=== PATIENT | female | born 1990 | race African-American/Black ===

== ENCOUNTER 2018-02-04 10:17 | Emergency (ER) | payer OTHER ==
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
--- NOTE | 2018-02-04 10:33 | EDPHYS ---
Physician Documentation [facility] Name: Christie Garcia Age: 27 yrs Sex: Female : 1990 Arrival Date: 02/04/2018 Time: 10:22 Bed 13 Private MD: Out, [facility] ED Physician Piyush Schmidt HPI: 02/04 10:35 This 27 yrs old Black Female presents to ER via Ambulatory with complaints of Headache snw < 24hrs Old. 10:35 The patient complains of pain to the right parietal area. The patient describes the snw headache as a pressure, throbbing. Onset: The symptoms/episode began/occurred suddenly, 4 day(s) ago. Associated signs and symptoms: Pertinent positives: intermittent blurry vision, headache, dizziness. The patient has not experienced similar symptoms in the past. The patient has not recently seen a physician. 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 - Social history:: Smoking status: Patient/guardian denies using tobacco, Patient uses alcohol, weekly. Patient/guardian denies using street drugs. - Ebola Screening: : Patient negative for fever greater than or equal to 101.5 degrees Fahrenheit, and additional compatible Ebola Virus Disease symptoms Patient denies exposure to infectious person Patient denies travel to an Ebola-affected area in the 21 days before illness onset No symptoms or risks identified at this time. ROS: 10:35 Constitutional: Negative for fever, chills, and weight loss, Eyes: Negative for injury, snw pain, redness, and discharge, ENT: Negative for injury, pain, and discharge, Neck: Negative for injury, pain, and swelling, Cardiovascular: Negative for chest pain, palpitations, and edema, Respiratory: Negative for shortness of breath, cough, wheezing, and pleuritic chest pain, Abdomen/GI: Negative for abdominal pain, nausea, vomiting, diarrhea, and constipation, Back: Negative for injury and pain, : Negative for injury, bleeding, discharge, and swelling, MS/Extremity: Negative for injury and deformity, Skin: Negative for injury, rash, and discoloration. 10:35 Neuro: Positive for dizziness, intermittent s/p CHI . Exam: 10:34 Constitutional: This is a well developed, well nourished patient who is awake, alert, snw and in no acute distress. Head/Face: Normocephalic, atraumatic. Eyes: Pupils equal round and reactive to light, extra-ocular motions intact. Lids and lashes normal. Conjunctiva and sclera are non-icteric and not injected. Cornea within normal limits. Periorbital areas with no swelling, redness, or edema. ENT: Nares patent. No nasal discharge, no septal abnormalities noted. Tympanic membranes are normal and external auditory canals are clear. Oropharynx with no redness, swelling, or masses, exudates, or evidence of obstruction, uvula midline. Mucous membranes moist. Neck: Trachea midline, no thyromegaly or masses palpated, and no cervical lymphadenopathy. Supple, full range of motion without nuchal rigidity, or vertebral point tenderness. No Meningismus. Chest/axilla: Normal chest wall appearance and motion. Nontender with no deformity. No lesions are appreciated. Cardiovascular: Regular rate and rhythm with a normal S1 and S2. No gallops, murmurs, or rubs. Normal PMI, no JVD. No pulse deficits. Respiratory: Lungs have equal breath sounds bilaterally, clear to auscultation and percussion. No rales, rhonchi or wheezes noted. No increased work of breathing, no retractions or nasal flaring. Abdomen/GI: Soft, non-tender, with normal bowel sounds. No distension or tympany. No guarding or rebound. No evidence of tenderness throughout. Back: No spinal tenderness. No costovertebral tenderness. Full range of motion. Skin: Warm, dry with normal turgor. Normal color with no rashes, no lesions, and no evidence of cellulitis. MS/ Extremity: Pulses equal, no cyanosis. Neurovascular intact. Full, normal range of motion. Neuro: Awake and alert, GCS 15, oriented to person, place, time, and situation. Cranial nerves II-XII grossly intact. Motor strength 5/5 in all extremities. Sensory grossly intact. Cerebellar exam normal. Normal gait. Vital Signs: 10:30 BP 112 / 79; Pulse 78; Resp 14; Temp 98.3; Pulse Ox 99% on R/A; Weight 90.72 kg; Height ch 5 ft. 4 in. (162.56 cm); Pain 8/10; 10:30 Body Mass Index 34.33 (90.72 kg, 162.56 cm) [facility]: 10:33 Patient medically screened. snw 10:36 Data reviewed: vital signs, nurses notes. Counseling: I had a detailed discussion with snw the patient and/or guardian regarding: the historical points, exam findings, and any diagnostic results supporting the discharge/admit diagnosis, the need for outpatient follow up, to return to the emergency department if symptoms worsen or persist or if there are any questions or concerns that arise at home. Special discussion: Based on the patient's history, exam and DX evaluation, there is no indication for emergent intervention or inpatient TX. It is understood by the patient/guardian that if the SXs persist or worsen they need to return immediately for re-evaluation. Based on the history and exam findings, there is no indication for further emergent testing or inpatient evaluation. I discussed with the patient/guardian the need to see the imaging specialist for further evaluation of the symptoms. Administered Medications: No medications were administered Disposition: 12:06 Co-signature as Attending Physician, Piyush Schmidt MD. Disposition: 02/04/18 10:33 Discharged to Home. Impression: Unspecified injury of head. - Condition is Stable. - Discharge Instructions: Concussion, Adult, Head Injury, Adult, Post-Concussion Syndrome, Back Injury Prevention, [id number], Back Exercises, [id number], Heat Therapy. - Prescriptions for Cyclobenzaprine 10 mg Oral Tablet - take 1 tablet by ORAL route every 8 hours As needed; 30 tablet. - Work release form, Medication Reconciliation Form, Thank You Letter, Antibiotic Education, Prescription Opioid Use form. - Follow up: Private Physician; When: 1 - 2 days; Reason: Recheck today's complaints, Continuance of care, Re-evaluation by your physician. Follow up: Emergency Department; When: As needed; Reason: Worsening of condition. Signatures: Barbara Cantrell RN RN Anabel Smith, KEYBOARD INSTRUMENT REPAIRER-C KEYBOARD INSTRUMENT REPAIRER-Csnw Tracie Martin, RN RN rb1 Piyush Schmidt MD MD gs Corrections: (The following items were deleted from the chart) 10:57 10:33 02/04/2018 10:33 Discharged to Home. Impression: Unspecified injury of head. rb1 Condition is Stable. Forms are Medication Reconciliation Form, Thank You Letter, Antibiotic Education, Prescription Opioid Use. Follow up: Private Physician; When: 1 - 2 days; Reason: Recheck today's complaints, Continuance of care, Re-evaluation by your physician. Follow up: Emergency Department; When: As needed; Reason: Worsening of condition. snw
== END 2018-02-04 10:57 | disposition home or self-care (01) ==
LOC: ER 10:17
DX: S09.90XA Unspecified injury of head, initial encounter (principal); W22.8XXA Striking against or struck by other objects, initial encounter; Y93.9 Activity, unspecified; Y92.9 Unspecified place or not applicable; I10 Essential (primary) hypertension; F32.9 Major depressive disorder, single episode, unspecified; F41.9 Anxiety disorder, unspecified
CPT/HCPCS: 99282